=== PATIENT | male | born 1950 | race African-American/Black ===

== ENCOUNTER 2023-03-18 06:08 | Inpatient (IN) | payer OTHER ==
[~2023-03-18] VITALS: Ht 182.9 cm; Wt 130.0 kg
[~2023-03-18 06:08] MED LIST: GABA-1250 PO
[2023-03-18] MEDS ORDERED: ceFAZolin 1GM/50ML 100 ML IV ONE (06:25)
[2023-03-18] MEDS ORDERED: ceFAZolin 1GM/50ML 50 ML IV ONE (06:28)
[2023-03-18] MEDS ORDERED: EPINEPHrine HCL 1 MG/1 ML AMP ONE (06:43)
[2023-03-18] MEDS ORDERED: DexAMETHasone SOD PHOS 4 MG/1ML SDV INJ ONE (06:43)
[2023-03-18] MEDS ORDERED: BUPIVACAINE 0.25% INJ 50ML VIAL ONE ×2 (06:43→08:21)
[2023-03-18] MEDS ORDERED: PROPOFOL 10 MG/ML 20 ML IV ONE ×3 (06:54→09:17)
[2023-03-18] MEDS ORDERED: LIDOCAINE 2% (LOCAL ANESTH.) PF 5ml SDV ONE (06:55)
[2023-03-18] MEDS ORDERED: ONDANSETRON HCL 4 MG/2 ML VIAL ONE (06:56)
[2023-03-18] MEDS ORDERED: GLYCOPYRROLATE 0.2 MG/ML 1ML VIAL ONE (06:56)
[2023-03-18] MEDS ORDERED: KETOROLAC TROMETH 30 MG/ML 1ML VIAL ONE ×2 (06:56→08:15)
[2023-03-18] MEDS ORDERED: DexAMETHasone SOD PHOS 10MG/1ML VIAL INJ ONE (06:56)
[2023-03-18] MEDS ORDERED: ACETAMINOPHEN IV 100 ML IV ONE (07:09)
[2023-03-18] MEDS ORDERED: TRANEXAMIC ACID 20 ML ONE (07:14)
[2023-03-18] MEDS ORDERED: ceFAZolin 1GM VL ONE (07:21)
[2023-03-18] MEDS ORDERED: CELECOXIB 100 MG CAP ONE (07:28)
[2023-03-18] MEDS ORDERED: VANCOMYCIN HCL 1000 MG VL ONE (07:36)
[2023-03-18] MEDS ORDERED: SODIUM CHLORIDE LOCK 10 ML ONE (07:50)
[2023-03-18] MEDS ORDERED: MORPHINE SULF PF 5 MG/10 ML VIAL ONE (08:22)
[2023-03-18] MEDS ORDERED: HYDROmorphone HCL 2 MG/ML VL/or syr IV PRN (09:30)
[2023-03-18] MEDS ORDERED: MORPHINE SULFATE INJ 2 MG/ml SYRG IV PRN (09:30)
[2023-03-18] MEDS ORDERED: ONDANSETRON HCL 4 MG/2 ML VIAL IV PRN (09:30)
[2023-03-18] MEDS ORDERED: NITROGLYCERIN 0.4 MG SL TAB SL PRN (09:30)
[2023-03-18 09:48] VITALS: O2SAT 98
[2023-03-18] MEDS ORDERED: ceFAZolin 2 GM/D5W100ml 100 ML IV SCH (14:00)
[2023-03-18] MEDS: ceFAZolin 2 GM/D5W100ml 100 ML IV SCH ×2 (14:00→22:20)
[2023-03-18] MEDS: GABAPENTIN 300 MG CAP PO SCH ×2 (16:08→22:20)
[2023-03-18] MEDS: LACTATED RINGER'S 1,000 ML IV SCH ×2 (16:09→19:30)
[2023-03-18] MEDS: SODIUM CHLOR 0.9% PF (SALINE LOCK) 10ML VIAL/SYR IV SCH ×2 (16:10→22:00)
[2023-03-18 20:00] VITALS: PULSE 63; PULSE 66; RESP 18
[2023-03-18] MEDS ORDERED: PHENYLEPHRINE HCL 10 MG/ML VL IV ONE (20:37)
[2023-03-18 22:00] VITALS: BP 111/60; PULSE 63; RESP 18; TEMP 97.8; O2SAT 92
[2023-03-18] MEDS: DOCUSATE SOD 100 MG CAP PO SCH (22:21)
[2023-03-19] VITALS (7 sets, daily range): BP systolic 110–128; BP diastolic 58–73; PULSE 59–73; RESP 14–19; TEMP 97.4–98.6; O2SAT 90–93
[2023-03-19] MEDS: DOCUSATE SOD 100 MG CAP PO SCH ×3 (00:40→21:17)
[2023-03-19 05:30] LABS: Basophils # (auto) 0 10 ^3/uL (0-0.2); Basophils % (auto) 0.1 % (0.0-2.0); Eosinophils # (auto) 0 10 ^3/uL (0-0.8); Hematocrit 33.6 % (41.0-53.0); Hemoglobin 11.1 g/dL (13.5-17.5); Lymphocytes # (auto) 1.4 10 ^3/uL (0.4-5.4); Lymphocytes % (auto) 8.1 % (10.0-50.0); Mean Corpuscular Hemoglobin 28.2 pg (28.0-32.0); Mean Corpuscular Hgb Conc. 32.9 g/dL (32.0-36.0); Mean Corpuscular Volume 85.7 fL (80.0-100.0); Monocytes # (auto) 1.2 10 ^3/uL (0-1.3); Monocytes % (auto) 6.7 % (0.0-12.0); Neutrophils # (auto) 14.6 10 ^3/uL (1.6-8.6); Neutrophils % (auto) 85.1 % (37.0-80.0); Red Blood Cells 3.93 10^6/uL (4.5-5.90); White Blood Cell 17.2 10^3/uL (4.4-10.8)
[2023-03-19 05:41] LABS: Chloride 107 mmol/L (98-107); Potassium 4.1 mmol/L (3.5-5.1); Sodium 137 mmol/L (136-145)
[2023-03-19 05:42] LABS: Anion Gap 5 (5-15); Calcium 8.2 mg/dL (8.5-10.1); Carbon Dioxide 25 mmol/L (20-30)
[2023-03-19 05:47] LABS: BUN/Creatinine Ratio 15.5 (10.0-20.0); Blood Urea Nitrogen 17 mg/dL (9-23); Glucose 140 mg/dL (74-106)
[2023-03-19] MEDS: LACTATED RINGER'S 1,000 ML IV SCH ×2 (05:48→17:33)
[2023-03-19] MEDS: GABAPENTIN 300 MG CAP PO SCH ×3 (05:49→21:17)
[2023-03-19] MEDS: SODIUM CHLOR 0.9% PF (SALINE LOCK) 10ML VIAL/SYR IV SCH ×3 (05:49→21:18)
[2023-03-19] MEDS: ceFAZolin 2 GM/D5W100ml 100 ML IV SCH (06:50)
[2023-03-19] MEDS: OXYCODONE W/ ACETAMINOPHEN 5/325MG TABLET PO PRN (19:53)
[2023-03-20 05:00] VITALS: BP 126/60; PULSE 60; RESP 14; TEMP 97.9; O2SAT 94
[2023-03-20] MEDS: LACTATED RINGER'S 1,000 ML IV SCH ×2 (05:03→11:30)
[2023-03-20] MEDS: GABAPENTIN 300 MG CAP PO SCH ×2 (05:39→14:11)
[2023-03-20] MEDS: SODIUM CHLOR 0.9% PF (SALINE LOCK) 10ML VIAL/SYR IV SCH ×2 (05:40→14:00)
[2023-03-20 08:00] VITALS: BP 127/58; PULSE 66; RESP 17; TEMP 97.8; O2SAT 94
[2023-03-20 09:00] VITALS: BP 127/58; PULSE 66; RESP 17; TEMP 97.8; O2SAT 94
[2023-03-20] MEDS: OXYCODONE W/ ACETAMINOPHEN 5/325MG TABLET PO PRN ×3 (10:20→20:28)
[2023-03-20] MEDS: DOCUSATE SOD 100 MG CAP PO SCH (10:20)
[2023-03-20 13:00] VITALS: BP 113/62; PULSE 62; RESP 17; TEMP 97.9; O2SAT 90
[2023-03-20 15:17] VITALS: BP 113/62; PULSE 62; RESP 17; TEMP 97.9; O2SAT 94
[2023-03-20 20:00] VITALS: PULSE 68; RESP 18
== END 2023-03-20 20:38 | DRG 470 ==
LOC: SUR 06:08 → TELE 09:23 → TELE-EAST 14:59
PROVIDERS: ADMIT Orthopaedic Surgery Adult Reconstructive Orthopaedic Surgery; ATTEND Orthopaedic Surgery
PROC: 0SR90JZ Replacement of Right Hip Joint with Synthetic Substitute, Open Approach (ICD-10-PCS; principal; 2023-03-18 07:49)
DX: M16.11 Unilateral primary osteoarthritis, right hip (principal)
CPT/HCPCS: 36415; 72170; 80048; 85025; 86850; 86900; 86901; 97110; 97116; 97163; 97530; A4565; C1776; G0378; J0131; J0171; J0690; J1100; J1885; J2001; J2405; J2704; J3490